=== PATIENT | male | born 1990 | race African-American/Black ===

== ENCOUNTER 2021-03-20 00:17 | Emergency (ER) | payer SELFPAY ==
[~2021-03-20] VITALS: Ht 172.7 cm; Wt 69.5 kg
[2021-03-20 00:28] VITALS: BP 131/61
[2021-03-20] MEDS ORDERED: CLIN-95 PO (00:48)
--- NOTE | 2021-03-20 00:49 | PHYS DOC ---
Past History Past Medical History: No Pertinent History Past Surgical History: No Surgical History Smoking: Cigarettes, Less than 1pk/day Alcohol Use: None Drug Use: None Adult General Chief Complaint Chief Complaint: DENTAL PROBLEM HPI HPI Patient is a 30-year-old male presenting for dental issues. Has history of poor dentition and numerous abscesses and dental caries in the past. Reports 3 days ago he noticed a bump without any mechanism of injury or trauma to the posterior left side of his mouth. Reports he looked today and is it was feeling larger when he was running his tongue and finger over it and he was concern for potential abscess prompting him to call his dentist. He has outpatient scheduled follow-up this upcoming Monday. Reports pain and concern for needing antibiotics in the interim prompted him to come in for evaluation. He has no other medical issues, on no medications on a daily basis Review of Systems Review of Systems Fourteen body systems of review of systems have been reviewed. See HPI for pertinent positives and negative responses, other lopez all other systems are negative, non-pertinent or non-contributory Allergies Allergies Allergies Coded Allergies Type Severity Reaction Last Updated Verified No Known Drug Allergies 11/07/13 No Physical Exam Physical Exam Constitutional: Well developed, well nourished, no acute distress, non-toxic appearance. HENT: Normocephalic, atraumatic, bilateral external ears normal, oropharynx moist, no oral exudates, there is significant gingival swelling present to tooth #13 with chronic appearing dental caries that does appear actively infected with early onset abscess formation on medial portion of the superior palate, nose n ormal. Eyes: PERRLA, EOMI, conjunctiva normal, no discharge. Neck: Normal range of motion, no tenderness, supple, no stridor. Cardiovascular: Heart rate regular per monitor Lungs & Thorax: No respiratory distress or accessory muscle use, bilateral chest rise Abdomen: Abdomen soft, non-tender, bowel sounds present in all quadrants, no guarding or rebound, nonacute abdomen. Skin: Warm, dry, no erythema, no rash. Back: No tenderness, no CVA tenderness. Extremities: No tenderness, no cyanosis, no clubbing, ROM intact, no edema. Neurologic: Alert and oriented X 3, grossly normal motor & sensory function, no focal deficits noted. Psychologic: Affect normal, judgement normal, mood normal. Current Patient Data Vital Signs Vital Signs Date Time Temp Pulse Resp B/P (MAP) Pulse Ox O2 Delivery O2 Flow Rate FiO2 03/20/21 00:28 98.8 66 18 131/61 (84) 98 Room Air EKG EKG [] Radiology/Procedures Radiology/Procedures [] Heart Score C/O Chest Pain: No Risk Factors: Risk Factors: DM, Current or recent (<one month) smoker, HTN, HLP, family history of CAD, obesity. Risk Scores: Risk Factors: DM, Current or recent (<one month) smoker, HTN, HLP, family history of CAD, obesity. Course & Med Decision Making Course & Med Decision Making ABCs unremarkable HPI and physical exam nonconcerning for any emergent or surgical issues Patient has dental abscess. Too early for incision and drainage at present, joint decision made to start clindamycin and administered x1 [place] while in ER setting I advised patient to take all medication as prescribed and to use ibuprofen and Tylenol as needed for pain control and follow-up with dentist this upcoming Monday as previously planned Strict return precautions discussed with good understanding by patient, all questions and concerns addressed prior to ER departure Dragjayant Disclaimer Dragon Disclaimer This electronic medical record was generated, in whole or in part, using a voice recognition dictation system. Departure Departure: Impression: Primary Impression: Dental abscess Disposition: HOME / SELF CARE / HOMELESS Condition: STABLE Referrals: PCP,KIRA (PCP) Patient Instructions: Dental Abscess Additional Instructions: As discussed prior to ER departure there were no emergent or surgical findings based on your evaluation in ER today. Your abscess was present but too early for incision and drainage at this time. As such, it is imperative you take prescribed antibiotics and present for outpatient dental appointment this upcoming Monday. It was a pleasure to take care of you and I wish you the best going forward Scripts Clindamycin Hcl (CLINDAMYCIN HCL) 300 Mg Capsule 1 CAP PO TID for dental abscess, #30 CAP Prov: LADONNA DAVALOS DO 03/20/21 LADONNA DAVALOS DO Mar 20, 2021 00:48
[2021-03-20] MEDS: HYDROcodone/APAP 5/325MG 1 TAB TABLET PO ONE (00:56)
[2021-03-20] MEDS: CLINDAMYCIN HCL 150 MG CAPSULE PO ONE (00:56)
== END 2021-03-20 00:59 | disposition home or self-care (01) ==
LOC: ER 00:17
DX: K04.7 Periapical abscess without sinus (principal); F17.210 Nicotine dependence, cigarettes, uncomplicated
CPT/HCPCS: 99283